=== PATIENT | female | born 1990 | race Caucasian/White ===

== ENCOUNTER → 2020-06-26 10:29 | Outpatient (CLI) | payer OTHER, SELFPAY ==
[2020-06-26 10:37] LABS: Microscopic, Urine URINE MICROSCOPIC (MICROSCOPIC)
[2020-06-26 11:55] LABS: Basophils # 0.1 K/mm3 (0-0.2); Basophils % 0.7 % (0.1-2.0); Eosinophils # 0.2 K/mm3 (0.0-0.4); Eosinophils % 3.1 % (0.1-12.0); Hematocrit 44.9 % (37.0-47.0); Hemoglobin 15.4 g/dL (12.2-16.2); Lymphocytes # 2.6 K/mm3 (0.7-4.5); Mean Corpuscular HGB Conc 34.4 g/dL (31.8-35.4); Mean Corpuscular Hemoglobin 30.2 pg (27.0-31.2); Mean Corpuscular Volume 87.8 fl (81-99); Mean Platelet Volume 8.4 fl (7.4-10.4); Monocytes # 0.4 K/mm3 (0.1-1.0); Monocytes % 5.1 % (1.7-9.3); Neutrophils # 4.3 K/mm3 (1.8-7.8); Neutrophils % 57.1 % (37.0-80.0); Platelet Count 254 K/mm3 (142-424); Red Blood Count 5.11 M/mm3 (4.20-5.40); Red Cell Distribution Width 12.5 % (11.5-17.5); White Blood Count 7.5 K/mm3 (4.8-10.8)
[2020-06-26 12:00] LABS: Chloride 106 mmol/L (98-107); Sodium 139 mmol/L (136-145)
[2020-06-26 12:01] LABS: Potassium 4.1 mmoL/L (3.5-5.1)
[2020-06-26 12:03] LABS: Alanine Aminotransferase 15 U/L (12-78); Albumin Level 4.3 g/dl (3.5-5.0); Albumin/Globulin Ratio 1.6 (1.1-1.8); Alkaline Phosphatase 50 U/L (38-126); Anion Gap 13.1 mEq/L (5-15); Aspartate Amino Transferase 20 U/L (14-36); Bilirubin,Total 0.6 mg/dl (0.2-1.3); Blood Urea Nitrogen 12 mg/dl (7-17); Calcium 9.5 mg/dl (8.4-10.2); Carbon Dioxide 24 mmol/L (22.0-30.0); Estimated Glomerular Filt Rate 99 ml/min (>60); GFR (African American) 120 ML/MIN (>60); Globulin 2.7 g/dL (1.3-3.2); Glucose 86 mg/dl (74-100)
[2020-06-26 12:23] LABS: HCG,Quantitative < 2 mIU/ml (0-5.42)
[2020-06-26 12:36] LABS: Thyroid Stimulating Hormone 1.87 uIU/mL (0.465-4.68)
[2020-06-26 14:32] LABS: Appearance,Urine CLEAR (Clear); Bilirubin,Urine Negative (Negative); Blood, Urine Negative (Negative); Color,Urine YELLOW (Yellow); Glucose,Urine (UA) Negative (Negative); Ketones,Urine Negative (Negative); Leukocyte Esterase,Urine Negative (Negative); Nitrate,Urine Negative (Negative); PH,Urine 6.5 (5.0-8.5); Protein,Urine Negative (Negative); Urobilinogen,Urine 0.2 EU/dl (0.2)
[2020-06-26 17:10] LABS: Bacteria,Urine Trace /lpf; RBC,Urine Occasional #/hpf (0-3)
== END ==
LOC: LAB 10:32
PROVIDERS: PCP Internal Medicine Adolescent Medicine; Visit Provider Internal Medicine Adolescent Medicine
DX: Z97.5 Presence of (intrauterine) contraceptive device (principal)
CPT/HCPCS: 36415; 80053; 81001; 84443; 84702; 85025; 87086

== ENCOUNTER → 2020-09-20 14:45 | Outpatient (CLI) | payer OTHER, SELFPAY ==
[2020-09-22 09:17] LABS: Hep A Ab, IgM Negative (Negative); Hepatitis B Core Antibody IgM Negative (Negative); Hepatitis B Surface Antigen Negative (Negative)
[2020-09-22 12:03] LABS: HIV Screen 4th Generation wRfx Non Reactive (Non Reactive); Hepatitis C Antibody <0.1 s/co ratio (0.0-0.9); Rapid Plasma Reagin Ab Titer Non Reactive (NonRea<1:1)
[2020-09-24 04:18] LABS: Neisseria gonorrhoeae, NAA Negative (Negative)
== END ==
LOC: LAB 14:45
PROVIDERS: Visit Provider Internal Medicine Adolescent Medicine
DX: Z11.3 Encounter for screening for infections with a predominantly sexual mode of transmission (principal)
CPT/HCPCS: 36415; 80074; 86592; 86703; 87491; 87591; G0432

== ENCOUNTER 2020-11-24 16:26 | Observation (INO) | payer OTHER, SELFPAY ==
[2020-11-24 16:28] VITALS: BP 151/79; PULSE 74; RESP 18; TEMP 36.7; O2SAT 97; BMI 34.9
--- NOTE | 2020-11-24 16:32 | HMH.EDGENADL ---
ED Disposition Clinical Impression: Abdominal pain Qualifiers: Abdominal location: right lower quadrant Qualified Code(s): R10.31 - Right lower quadrant pain Disposition: Admitted as Observation Condition on Discharge: Good - Critical Care Critical Care Time: No Attestation: On , the high probability of a clinically significant, sudden or life threatening deterioration of the following system(s) required my full and direct attention, intervention and personal management. The time I documented below is in addition to time spent performing reported procedures but includes the following listed in this critical care notation. Medical Decision Making - Medical Records Medical records reviewed: Yes: I reviewed the patient's medical records. - Donn Inquiry Pt receiving controlled substance: No Vital Signs: 11/24/20 16:28 Temperature 98.1 F Temperature Source Oral Pulse Rate [Right Radial] 74 Respiratory Rate 18 Blood Pressure [Right Arm] 151/79 H Blood Pressure Mean [Right Arm] 103 Blood Pressure Source [Right Arm] Automatic Cuff Blood Pressure Position [Right Arm] Sitting 02 Sat by Pulse Oximetry 97 Oxygen Delivery Method Room Air - Lab Data Lab results reviewed: Yes: I reviewed the patient's lab results. Lab Results 11/24/20 16:52: Urine Color Yellow, Urine Appearance Clear, Urine pH 6.5, Ur Specific [place] 1.020, Urine Protein Negative, Urine Glucose (UA) Negative, Urine Ketones Negative, Urine Blood Negative, Urine Nitrate Negative, Urine Bilirubin Negative, Urine Urobilinogen 0.2, Ur Leukocyte Esterase Negative, Urine RBC None, Urine WBC Occasional, Ur Squamous Epith Cells Occasional, Urine Bacteria Trace 11/24/20 16:52: WBC 7.3, RBC 5.17, Hgb 14.8, Hct 45.5, MCV 88.1, MCH 28.6, MCHC 32.5, RDW 13.5, Plt Count 295, MPV 8.4, Neut % (Auto) 55.7, Lymph % (Auto) 34.3, [place] % (Auto) 6.0, Eos % (Auto) 3.2, Baso % (Auto) 0.8, Neut # (Auto) 4.1, Lymph # (Auto) 2.5, [place] # (Auto) 0.4, Eos # (Auto) 0.2, Baso # (Auto) 0.1 11/24/20 16:52: Urine HCG, Qual Negative 11/24/20 16:52: Sodium 139, Potassium 4.0, Chloride 109 H, Carbon Dioxide 24, Anion Gap 10.0, BUN 12, Creatinine 0.70, Estimated Creat Clear 195, Estimated GFR 99, Est GFR ( Amer) 120, Glucose 93, Calcium 9.7, Total Bilirubin 0.5, AST 34, ALT 32, Alkaline Phosphatase 69, Total Protein 7.6, Albumin 4.6, Globulin 3.0, Albumin/Globulin Ratio 1.5 11/24/20 16:52: Lipase 383 H Result diagrams: 11/25/20 07:05 11/25/20 07:05 Orders (Tests/Meds): ED MEDICATIONS Discontinued Medications Generic Name Dose Route Start Last Admin Trade Name Freq PRN Reason Stop Dose Admin Sodium Chloride 1,000 mls @ 999 mls/hr 11/24/20 17:15 Sod Chlor 0.9% 1000ml Bag IV 11/24/20 18:15 .Q1H1M HI Sodium Chloride 1,000 mls @ 150 mls/hr 11/24/20 17:45 11/25/20 03:38 Sod Chlor 0.9% 1000ml Bag IV 12/24/20 17:44 150 mls/hr .Q6H40M HI Administration Iopamidol 75 ml 11/24/20 18:28 11/24/20 18:30 Iopamidol-370 (76%);100ml Bottle IV 11/24/20 18:29 75 ml ONCE ONE Administration Ketorolac Tromethamine 30 mg 11/24/20 21:17 11/25/20 09:52 Ketorolac 30mg/Ml Vial IV 12/24/20 21:16 30 mg Q6HP PRN Administration MODERATE PAIN Morphine Sulfate 2 mg 11/24/20 21:18 Morphine 2mg/Ml Syringe IV 12/24/20 21:17 Q4HP PRN SEVERE PAIN Sodium Chloride 10 ml 11/24/20 18:28 11/24/20 18:30 Sodium Chloride 0.9% 10ml Syr (Rad Only) IV 11/24/20 18:29 10 ml ONCE ONE Administration ORDERS Category Date Time Status General Surgery Consult [Consult to General Surgery] [ Cons 11/24/20 17:32 Ordered CONS] Routine Medical Decision Narrative: 30yo F evaluated for abdominal pain. Differential diagnosis includes but not limited to: Enteritis, IBD, appendicitis, constipation. Patient is in mild pain on initial evaluation. Labs and CT of the abdomen pelvis have been ordered. Labs are unremarkable. CT of the abdomen a
--- NOTE | 2020-11-24 17:10 | PC.NURSE ---
pt is currently boarding in the ER waiting on an available bed for direct admission
--- NOTE | 2020-11-24 17:13 | CT_ITS ---
PROCEDURE: CT ABDOMEN PELVIS W CON CLINICAL INDICATION: abd pain, n/v/d Right lower quadrant pain with nausea vomiting and diarrhea COMPARISON: No exams were available for comparison TECHNIQUE: IV Contrast: 75ML Isovue 370 Oral Contrast None Axial images obtained with sagittal and coronal reformats. All CT scans at the facility use one or more dose reduction, viz: automated exposure control, ma/kV adjustment per patient size (including targeted exams where dose is matched to indication, i.e. head), or iterative reconstruction technique. FINDINGS: LOWER THORAX: No acute finding ABDOMEN & PELVIS: The liver, pancreas, adrenal glands, and kidneys show no acute finding. There is mild splenomegaly at 14 cm. No intestinal obstruction or free air. No evidence of appendicitis or diverticulitis. Bowel gas pattern is nonspecific with nondistended fluid-filled loops of small bowel with some mild small bowel wall thickening consistent with enteritis. Small collapsed ovarian cyst is present on the right at 1.8 x 1 cm colonic diverticulosis of the sigmoid colon versus collapsed haustra. No evidence of diverticulitis. No pelvic mass, abnormal fluid collection, or focal inflammatory change of the pelvis. No acute bony anomalies. IMPRESSION: 1. Possible enteritis. 2. No evidence of appendicitis or obstructing ureteral calculus. 3. Mild splenomegaly Dictated by: Abraham Gusman MD 11/25/2020 05:46 Abraham Gusman MD in [place] 11/25/2020 05:46
--- NOTE | 2020-11-24 17:14 | PC.NURSE ---
spoke with Dr. Delacruz who gave verbal orders on pt.
[2020-11-24 17:32] LABS: Microscopic, Urine URINE MICROSCOPIC (MICROSCOPIC)
--- NOTE | 2020-11-24 17:33 | HMH.HP ---
*Admission Date: 11/24/20 *Chief complaint: Abdominal pain *History of present illness: 30-year-old white female with several years ago but otherwise no abdominal surgery history who came to my office today with a chief complaint of a couple of days of worsening abdominal pain. She reports the pain started yesterday morning, was sharp and epigastric, she had some nausea with vomiting, she took some Pepto-Bismol which helped the nausea but not the pain she then had some diarrhea some of which was black-colored after the Pepto-Bismol but then the pain became diffuse and localized in the lower part of the abdomen and is now localized in the right lower quadrant. She has had subjective fevers without chills. She denies urinary or vaginal complaints. In the office she was found to have an exam very concerning for acute appendicitis and was admitted to hospital for IV fluids, further diagnostic testing and general surgery consultation. [facility] History I have reviewed the patient's past medical history: Yes *Have you ever received a pneumonia vaccine?: No *Have you received a flu vaccine this season?: No Laterality Cases: Bilateral: Tonsillectomy Other Surgeries: Yes: Amputation: No Fractures: No - *Social History Smoking Status: Current every day smoker Tobacco Type: cigarettes Alcohol Intake: never Alcohol Intake Frequency:: a few times a month Substance Use Type: denies use *Occupational Status:: employed *Travel in the last 8 weeks: None Family Hx:: Unable to obtain, Diabetes, Cancer, Hypertension Review of Systems - Review of Systems Review of systems:: pertinent systems reviewed and negative unless documented below Meds Home Medications Medication Instructions Recorded Confirmed Type Sertraline HCl [Zoloft 50mg tablet] 50 mg PO DAILY 11/24/20 11/24/20 History buPROPion HCL [Bupropion Xl] 150 mg PO DAILY 11/24/20 11/24/20 History Allergies Allergy/AdvReac Type Severity Reaction Status Date / Time No Known Drug Allergies Allergy Unknown -- Verified 12/10/17 13:42 Exam Vital signs and Labs for Last 24 Hours: Temp Pulse Resp BP Pulse Ox 98.1 F 74 18 151/79 H 97 11/24/20 16:28 11/24/20 16:28 11/24/20 16:28 11/24/20 16:28 11/24/20 16:28 I & O for Last 24 hours: Intake & Output 11/22/20 11/23/20 11/24/20 11/25/20 11:59 11:59 11:59 11:59 Weight 230 lb - *Routine HEENT Exam Head: Present: normocephalic Eye: Present: EOMI, PERRL ENT: Present: mucous membranes moist - *Routine Neck Exam Present: supple. Absent: lymphadenopathy - *Routine Respiratory Exam Present: CTA bilaterally - *Routine Cardiovascular Exam Present: RRR - *Routine Abdominal Exam Present: soft, tenderness, guarding Comments: Tenderness in right lower quadrant with referred pain from the left side, also with rebound tenderness. - *Routine Extremities Exam Absent: cyanosis, clubbing, edema - *Routine Skin Exam Present: warm. Absent: rash - *Routine Neurological Exam Present: alert, oriented X3 Assessment and Plan (1) Abdominal pain, right lower quadrant Status: Acute Category: Medical Code(s): R10.31 - Right lower quadrant pain Exam extremely concerning for appendicitis. Admit to observation, IV fluids, labs, CT scan of abdomen and pelvis, surgery consultation.
[2020-11-24 17:39] LABS: Chloride 109 mmol/L (98-107); Sodium 139 mmol/L (136-145)
[2020-11-24 17:41] LABS: Alanine Aminotransferase 32 U/L (12-78); Aspartate Amino Transferase 34 U/L (14-36); Blood Urea Nitrogen 12 mg/dl (7-17); Creatinine Clearance Estimated 195 mL/min (50-200); Estimated Glomerular Filt Rate 99 ml/min (>60); GFR (African American) 120 ML/MIN (>60); Lipase 383 U/L (23-300)
[2020-11-24 17:42] LABS: Albumin Level 4.6 g/dl (3.5-5.0); Albumin/Globulin Ratio 1.5 (1.1-1.8); Alkaline Phosphatase 69 U/L (38-126); Bilirubin,Total 0.5 mg/dl (0.2-1.3); Calcium 9.7 mg/dl (8.4-10.2); Carbon Dioxide 24 mmol/L (22.0-30.0); Glucose 93 mg/dl (74-100); Total Protein,Serum 7.6 g/dl (6.3-8.2)
[2020-11-24 17:46] LABS: Basophils # 0.1 K/mm3 (0-0.2); Basophils % 0.8 % (0.1-2.0); Eosinophils # 0.2 K/mm3 (0.0-0.4); Eosinophils % 3.2 % (0.1-12.0); Hematocrit 45.5 % (37.0-47.0); Hemoglobin 14.8 g/dL (12.2-16.2); Lymphocytes # 2.5 K/mm3 (0.7-4.5); Lymphocytes % 34.3 % (10-50); Mean Corpuscular HGB Conc 32.5 g/dL (31.8-35.4); Mean Corpuscular Hemoglobin 28.6 pg (27.0-31.2); Mean Corpuscular Volume 88.1 fl (81-99); Mean Platelet Volume 8.4 fl (7.4-10.4); Monocytes # 0.4 K/mm3 (0.1-1.0); Neutrophils # 4.1 K/mm3 (1.8-7.8); Neutrophils % 55.7 % (37.0-80.0); Platelet Count 295 K/mm3 (142-424); Red Blood Count 5.17 M/mm3 (4.20-5.40); Red Cell Distribution Width 13.5 % (11.5-17.5); White Blood Count 7.3 K/mm3 (4.8-10.8)
[2020-11-24 17:48] LABS: Appearance,Urine CLEAR (Clear); Bilirubin,Urine Negative (Negative); Blood, Urine Negative (Negative); Color,Urine YELLOW (Yellow); Glucose,Urine (UA) Negative (Negative); Ketones,Urine Negative (Negative); Leukocyte Esterase,Urine Negative (Negative); Nitrate,Urine Negative (Negative); PH,Urine 6.5 (5.0-8.5); Protein,Urine Negative (Negative); Urobilinogen,Urine 0.2 EU/dl (0.2)
[2020-11-24 17:51] LABS: Urine Pregnancy, HCG Qual. Negative (Negative)
--- NOTE | 2020-11-24 17:52 | PC.NURSE ---
per Dr. 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 Chavez. States to contact Dr. Chavez when pts results come back of CT scan.
--- NOTE | 2020-11-24 17:54 | PC.NURSE ---
notified radiology that pt test is back and she is ready for CT
[2020-11-24 18:01] LABS: Bacteria,Urine Trace /lpf; Squamous Epithelial Cell,Urine Occasional #/hpf (0-5); WBC,Urine Occasional #/hpf (0-3)
--- NOTE | 2020-11-24 18:18 | PC.NURSE ---
pt to CT
--- NOTE | 2020-11-24 18:58 | PC.NURSE ---
per lab pt covid swab has approx 88 minutes left until result
--- NOTE | 2020-11-24 19:12 | PC.NURSE ---
notified Dr. Chavez of pt CT scan results per vrad reading, no further order obtained at this time, will continue monitor
--- NOTE | 2020-11-24 19:13 | PC.NURSE ---
shift change report given to dangelo rn pt continuing to board in ER until covid swab result.
--- NOTE | 2020-11-24 20:55 | PC.NURSE ---
pt arrived to unit via wheelchair at this time, pt is alert and oriented does complain of pain 5/10 of epigastric pain not radiating at this time, pt is grimacing in pain otherwise no complaints voiced
[2020-11-24 21:11] VITALS: BMI 35.8
[2020-11-24 21:45] VITALS: O2SAT 96
[2020-11-24 22:14] VITALS: BP 96/57; PULSE 60; RESP 18; TEMP 36.8; O2SAT 96
[2020-11-25 03:51] VITALS: BP 110/57; PULSE 59; RESP 16; TEMP 36.8; O2SAT 97
--- NOTE | 2020-11-25 03:54 | PC.NURSE ---
pt has rested fairly well throughout shift, pt is alert and oriented and able to make needs known, lungs remain clear, heart regular, bs hyperactive x 4 quads, pt continues to complain of epigastric pain and abdominal tenderness above umbilicus, pt remains npo no needs at this time
--- NOTE | 2020-11-25 06:13 | PC.NURSE ---
pt has only had 200ml of dark concentrated urine output this shift, will continue to monitor at this time
[2020-11-25 07:18] LABS: Basophils % 0.4 % (0.1-2.0); Eosinophils # 0.2 K/mm3 (0.0-0.4); Eosinophils % 3.9 % (0.1-12.0); Hematocrit 40.7 % (37.0-47.0); Lymphocytes # 2.7 K/mm3 (0.7-4.5); Mean Corpuscular HGB Conc 31.8 g/dL (31.8-35.4); Mean Corpuscular Hemoglobin 28.5 pg (27.0-31.2); Mean Corpuscular Volume 89.7 fl (81-99); Mean Platelet Volume 8.4 fl (7.4-10.4); Monocytes # 0.4 K/mm3 (0.1-1.0); Monocytes % 6.6 % (1.7-9.3); Neutrophils # 2.5 K/mm3 (1.8-7.8); Neutrophils % 43.1 % (37.0-80.0); Platelet Count 220 K/mm3 (142-424); Red Blood Count 4.54 M/mm3 (4.20-5.40); Red Cell Distribution Width 13.6 % (11.5-17.5); White Blood Count 5.9 K/mm3 (4.8-10.8)
[2020-11-25 07:20] LABS: Hemoglobin 12.9 g/dL (12.2-16.2)
[2020-11-25 07:22] LABS: Chloride 112 mmol/L (98-107)
[2020-11-25 07:23] LABS: Potassium 3.8 mmoL/L (3.5-5.1); Sodium 138 mmol/L (136-145)
[2020-11-25 07:25] LABS: Alanine Aminotransferase 25 U/L (12-78); Aspartate Amino Transferase 26 U/L (14-36); Blood Urea Nitrogen 13 mg/dl (7-17); Creatinine Clearance Estimated 200 mL/min (50-200); Estimated Glomerular Filt Rate 99 ml/min (>60); GFR (African American) 120 ML/MIN (>60)
[2020-11-25 07:26] LABS: Albumin Level 3.7 g/dl (3.5-5.0); Albumin/Globulin Ratio 1.5 (1.1-1.8); Alkaline Phosphatase 50 U/L (38-126); Anion Gap 5.8 mEq/L (5-15); Bilirubin,Total 0.5 mg/dl (0.2-1.3); Calcium 8.8 mg/dl (8.4-10.2); Carbon Dioxide 24 mmol/L (22.0-30.0); Globulin 2.4 g/dL (1.3-3.2); Glucose 87 mg/dl (74-100); Total Protein,Serum 6.1 g/dl (6.3-8.2)
[2020-11-25 07:54] VITALS: BP 100/64; PULSE 51; RESP 18; TEMP 36.8; O2SAT 99
[2020-11-25 08:00] VITALS: O2SAT 99
--- NOTE | 2020-11-25 08:02 | PC.NURSE ---
Dr. Chavez in room seeing pt.
--- NOTE | 2020-11-25 08:27 | HMH.DCSUM ---
General - General Admission date:: 11/24/20 Discharge date: 11/25/20 HPI HPI: 30-year-old white female with several years ago but otherwise no abdominal surgery history who came to my office today with a chief complaint of a couple of days of worsening abdominal pain. She reports the pain started yesterday morning, was sharp and epigastric, she had some nausea with vomiting, she took some Pepto-Bismol which helped the nausea but not the pain she then had some diarrhea some of which was black-colored after the Pepto-Bismol but then the pain became diffuse and localized in the lower part of the abdomen and is now localized in the right lower quadrant. She has had subjective fevers without chills. She denies urinary or vaginal complaints. In the office she was found to have an exam very concerning for acute appendicitis and was admitted to hospital for IV fluids, further diagnostic testing and general surgery consultation. Hospital Course Hospital Course: Overnight patient was admitted, IV fluids were given, pain medicine with Toradol, CT scan showed no evidence of appendicitis, very good quality scan, had evidence of enteritis. Patient CBC was normal, remained normal this morning. Her exam improved with minimal pain around the central part of the abdomen but no right lower quadrant pain. The diagnosis of enteritis was established. Patient tolerated liquids well this morning, she will be discharged home with Flagyl, Toradol for pain, clear liquids advancing to low-fat diet and close follow-up in the office on Sunday. Objective Vital signs: Temp Pulse Resp BP Pulse Ox 98.3 F 51 L 18 100/64 L 99 11/25/20 07:54 11/25/20 07:54 11/25/20 07:54 11/25/20 07:54 11/25/20 07:54 no acute distress - *Routine HEENT Exam Head: Present: normocephalic Eye: Present: EOMI, PERRL ENT: Present: mucous membranes moist - *Routine Neck Exam Present: supple - *Routine Respiratory Exam Present: CTA bilaterally - *Routine Cardiovascular Exam Present: RRR - *Routine Abdominal Exam Present: soft, normoactive bowel sounds, tenderness Comments: Very minimal tenderness in the periumbilical area. No rebound, exam improved from yesterday - *Routine Extremities Exam Absent: cyanosis, clubbing, edema - *Routine Skin Exam Present: warm. Absent: rash - Detailed Eye Exam Eyelids: Bilateral normal inspection Results Labs on day of discharge: Labs from last 24 hours 11/25/20 11/25/20 11/24/20 07:05 07:05 16:52 WBC 5.9 RBC 4.54 Hgb 12.9 D Hct 40.7 MCV 89.7 MCH 28.5 MCHC 31.8 RDW 13.6 Plt Count 220 D MPV 8.4 Neut % (Auto) 43.1 Lymph % (Auto) 46.0 [place] % (Auto) 6.6 Eos % (Auto) 3.9 Baso % (Auto) 0.4 Neut # (Auto) 2.5 Lymph # (Auto) 2.7 [place] # (Auto) 0.4 Eos # (Auto) 0.2 Baso # (Auto) 0.0 Sodium 138 Potassium 3.8 Chloride 112 H Carbon Dioxide 24 Anion Gap 5.8 BUN 13 Creatinine 0.70 Estimated Creat Clear 200 Estimated GFR 99 Est GFR ( Amer) 120 Glucose 87 Calcium 8.8 Total Bilirubin 0.5 AST 26 ALT 25 Alkaline Phosphatase 50 Total Protein 6.1 L Albumin 3.7 D Globulin 2.4 Albumin/Globulin Ratio 1.5 Lipase 383 H Urine Color Urine Appearance Urine pH Ur Specific [place] Urine Protein Urine Glucose (UA) Urine Ketones Urine Blood Urine Nitrate Urine Bilirubin Urine Urobilinogen Ur Leukocyte Esterase Urine RBC Urine WBC Ur Squamous Epith Cells Urine Bacteria Urine HCG, Qual 11/24/20 11/24/20 11/24/20 16:52 16:52 16:52 WBC 7.3 RBC 5.17 Hgb 14.8 Hct 45.5 MCV 88.1 MCH 28.6 MCHC 32.5 RDW 13.5 Plt Count 295 MPV 8.4 Neut % (Auto) 55.7 Lymph % (Auto) 34.3 [place] % (Auto) 6.0 Eos % (Auto) 3.2 Baso % (Auto) 0.8 Neut # (Auto) 4.1
--- NOTE | 2020-11-25 08:36 | HMH.GSCON ---
*Admission Date: 11/24/20 *Reason for consult:: Abdominal pain *History of present illness: This is a 30-year-old female seen in consultation from Dr. Delacruz for evaluation regarding abdominal pain and concerns for possible appendicitis. She presented yesterday with increasing abdominal pain. Upon presentation she was developing localization to the right lower quadrant. She stated that her symptoms began approximately 2 days prior with vague pain mostly in the mid and upper abdomen. Some associated nausea. She also reported significant diarrhea that had improved by the time of evaluation. Subjective low-grade fever. She has remained afebrile with stable normal vital signs. Her white blood cell count upon presentation was normal and remains normal on repeat this morning. A CT scan with IV contrast obtained through the emergency department revealed no evidence of appendicitis. This morning she states that she feels just a little bit better . Review of Systems - Constitutional Denies body ache(s) - Eyes Denies change in vision - ENT Denies difficulty swallowing - *Cardiovascular Denies chest pain - *Respiratory Denies cough - *Gastrointestinal Reports abdominal pain, Reports loose stools, Reports nausea - *Genitourinary Denies painful urination - *Musculoskeletal Denies abnormal walking - Integumentary/Breasts Denies new lesions - *Neurologic Denies confusion - Psychiatric Denies anxiety - Endocrine Denies cold intolerance - Hematologic/Lymphatic Denies easy bleeding - Allergic/Immunologic Denies wheezing [facility] History *Have you ever received a pneumonia vaccine?: No *Have you received a flu vaccine this season?: No Laterality Cases: Bilateral: Tonsillectomy Other Surgeries: Yes: Amputation: No Fractures: No - *Social History Last grade of school completed: GED Smoking Status: Current every day smoker Tobacco Type: cigarettes # Packs/Day (cigarettes): 1 Alcohol Intake: former Alcohol Intake Frequency:: other Substance Use Type: former substance user *Occupational Status:: employed Household Members: family, children *Travel in the last 8 weeks: None Family Hx:: Cancer Meds Home Medications Medication Instructions Recorded Confirmed Type Ketorolac Tromethamine [Toradol 10 mg PO Q6H 5 Days #20 tab 11/25/20 Rx 10mg tablet] Sertraline HCl [Zoloft 50mg tablet] 50 mg PO DAILY #90 tab 11/25/20 Rx buPROPion HCL [Bupropion Xl] 150 mg PO DAILY #90 tab 11/25/20 Rx metroNIDAZOLE [Flagyl 500mg 500 mg PO TID #21 tab 11/25/20 Rx Tablet] Allergies Allergy/AdvReac Type Severity Reaction Status Date / Time No Known Drug Allergies Allergy Unknown -- Verified 12/10/17 13:42 Exam Vital signs and Labs for Last 24 Hours: Temp Pulse Resp BP Pulse Ox 98.3 F 51 L 18 100/64 L 99 11/25/20 07:54 11/25/20 07:54 11/25/20 07:54 11/25/20 07:54 11/25/20 08:00 Laboratory Results - last 24 hr 11/24/20 16:52: Urine Color Yellow, Urine Appearance Clear, Urine pH 6.5, Ur Specific [place] 1.020, Urine Protein Negative, Urine Glucose (UA) Negative, Urine Ketones Negative, Urine Blood Negative, Urine Nitrate Negative, Urine Bilirubin Negative, Urine Urobilinogen 0.2, Ur Leukocyte Esterase Negative, Urine RBC None, Urine WBC Occasional, Ur Squamous Epith Cells Occasional, Urine Bacteria Trace 11/24/20 16:52: WBC 7.3, RBC 5.17, Hgb 14.8, Hct 45.5, MCV 88.1, MCH 28.6, MCHC 32.5, RDW 13.5, Plt Count 295, MPV 8.4, Neut % (Auto) 55.7, Lymph % (Auto) 34.3, [place] % (Auto) 6.0, Eos % (Auto) 3.2, Baso % (Auto) 0.8, Neut # (Auto) 4.1, Lymph # (Auto) 2.5, [place] # (Auto) 0.4, Eos # (Auto) 0.2, Baso # (Auto) 0.1 11/24/20 16:52: Urine HCG, Qual Negative 11/24/20 16:52: Sodium 139, Potassium 4.0, Chloride 109 H, Carbon Dioxide 24, Anion Gap 10.0, BUN 12, Creatinine 0.70, Estimated Creat Clear 195, Estimated GFR 99, Est GFR ( Amer) 120, Glucose 93, Calcium 9.7, Total Lc
== END 2020-11-25 11:25 | disposition home or self-care (01) ==
LOC: ER 16:35 → OB 19:12 → 2ND 19:34 → OB 19:34
PROVIDERS: Admitting Provider Internal Medicine Adolescent Medicine; Emergency Provider Family Medicine; PCP Internal Medicine Adolescent Medicine; Visit Provider Internal Medicine Adolescent Medicine
DX: K52.9 Noninfective gastroenteritis and colitis, unspecified (principal); Z72.0 Tobacco use
CPT/HCPCS: 36415; 74177; 80053; 81001; 81025; 83690; 85025; 99203; G0378; G0463; Q9967; U0003

== ENCOUNTER 2021-02-13 13:37 | Emergency (ER) | payer OTHER, SELFPAY ==
[2021-02-13 14:20] VITALS: BP 131/77; PULSE 87; RESP 18; TEMP 37; O2SAT 98; BMI 35.6
--- NOTE | 2021-02-13 15:07 | HMH.EDUTC ---
[facility] – [place], [place] Disposition Clinical Impression: Nausea vomiting and diarrhea Disposition: Home, Self-Care Condition on Discharge: Good Instructions: Nausea and Vomiting-Adult, Diarrhea Additional Instructions: Drink extra fluids with and between meals. If you have difficulty drinking, try very small amounts of water or suck on ice chips. ? Avoid fruit juices, as these do not replace minerals and can actually increase diarrhea. ? Children and adults can use sports drinks to replenish electrolytes. Younger children and infants should use products formulated for children, like oral rehydration solutions. ? Eat food in small amounts and let your stomach recover. ? Get lots of rest. You may feel tired or weak. ? No greasy or fried foods for the next 24-48 hours BRAT diet Bananas Rice Apples and [place] ? Make sure to drink plenty of liquids ? Return if needed ? Straight to ER if any life threatening symptoms ? Zofran as prescribed ? Follow up with family doctor in the next 48-72 hours if no improvement or any worsening of symptoms Prescriptions: Ondansetron [Zofran 4mg ODT] 4 mg PO TIDP PRN #10 tab PRN Reason: Nausea Transmission Status: Pending to [id number] Referrals: Provider,Referral, MD [Primary Care Provider] - As needed Forms: Work/School Release Time of Disposition: 15:12 Medical Decision Making - Donn Inquiry Pt receiving controlled substance: No Donn was queried for this patient: No Vital Signs: 02/13/21 14:20 Temperature 98.6 F Temperature Source Oral Pulse Rate [Right Brachial] 87 Respiratory Rate 18 Blood Pressure [Right Arm] 131/77 Blood Pressure Mean [Right Arm] 95 Blood Pressure Source [Right Arm] Automatic Cuff Blood Pressure Position [Right Arm] Sitting 02 Sat by Pulse Oximetry 98 Oxygen Delivery Method Room Air Medical Decision Narrative: Patient denies just stopped her menstrual cycle this morning No vomiting or diarrhea since arrival at the [facility] HPI - General Stated complaint: vomiting, diarrhea Time Seen by Provider: 02/13/21 15:07 Mode of Arrival: Ambulatory Source of Information: Patient Limitations: No Limitations Description of Symptoms (Recalled from Triage Doc. by RN): PATIENT C/O VOMITING, DIARRHEA, HEADACHE AND FATIGUE SINCE SUNDAY. STATES SHE NEEDS A WORK NOTE HEENT Symptoms (Recalled from RN notes): No Resp Symptoms (Recalled from RN notes): No Skin Symptoms (Recalled from RN notes): No MS Symptoms (Recalled from RN notes): No Functional Status (Recalled from RN notes): WNL - History of Present Illness Provider Complaint: Patient states that she was recently around someone that had a stomach virus States that her children had it earlier in the week and then on Sunday she started feeling bad and today she woke up with vomitng and diarrhea and was unable to go to work State that she wanted to get something for the N/V and get a work note - Related Data Previous Rx's Medication Instructions Recorded Ketorolac Tromethamine [Toradol 10 mg PO Q6H 5 Days #20 tab 11/25/20 10mg tablet] Sertraline HCl [Zoloft 50mg tablet] 50 mg PO DAILY #90 tab 11/25/20 buPROPion HCL [Bupropion Xl] 150 mg PO DAILY #90 tab 11/25/20 metroNIDAZOLE [Flagyl 500mg 500 mg PO TID #21 tab 11/25/20 Tablet] Ondansetron [Zofran 4mg ODT] 4 mg PO TIDP PRN #10 tab 02/13/21 Allergies Allergy/AdvReac Type Severity Reaction Status Date / Time No Known Drug Allergies Allergy Unknown -- Verified 12/10/17 13:42 - Worker's Comp Is this a Worker's Comp case?: No [facility] History - Hepatitis A Screen Drug use history?: No High risk sexual behaviors?: No History of sexually transmitted infection?: No Currently employed?: No Childcare worker?: No Do you have indoor plumbing?: Yes Do you have electricity?: Yes Attestation statement:: This patient has been screened for Hepatitis A risk factors. I have reviewed the patient's past medical history: Yes Laterality
[2021-02-13 15:22] VITALS: BP 131/77; PULSE 87; RESP 18; TEMP 37; O2SAT 98
== END 2021-02-13 15:29 | disposition home or self-care (01) ==
PROVIDERS: Emergency Provider Nurse Practitioner
DX: K52.9 Noninfective gastroenteritis and colitis, unspecified (principal); F17.210 Nicotine dependence, cigarettes, uncomplicated
CPT/HCPCS: 99202; G0463